=== PATIENT | female | born 1945 | race Caucasian/White ===

== ENCOUNTER → 2020-12-03 10:28 | Outpatient (CLI) | payer MEDICARE, SELFPAY ==
--- NOTE | ~2020-12-03 | DEXA_ITS ---
Bone Density Report Name: Kori Almazan Age: 75 Sex: Female Ethnicity: White Date of : 1945 Indication: postmenopausal; screening for osteoporosis; Referring Provider: Kate, Haim Loredo Study: Bone densitometry was performed. Exam Date: December 03, 2020 Accession number: [id number] Bone Density: Region BMD T-score Z-score Classification AP Spine (L1-L4) 1.237 1.7 4.1 Normal Femoral Neck (Left) 0.921 0.7 2.7 Normal Total Hip (Left) 1.069 1.0 2.8 Normal Femoral Neck (Right) 0.920 0.6 2.7 Normal Total Hip (Right) 1.099 1.3 3.0 Normal Total Hip Mean 1.084 1.2 2.9 Normal World Health Organization criteria for BMD impression classify patients as: Normal (T-score at or above -1.0), Osteopenia (T-score between -1.0 and -2.5), or Osteoporosis (T-score at or below -2.5). 10-year Fracture Risk: FRAX not reported because: All T-scores for Spine Total, Hip Total, Femoral Neck at or above -1.0 Clinical Information Provided by Patient: Patient maximum height was 63.0 Menopause Age: 51 No regular weight bearing exercise Does not regularly consume dairy products Drinks caffeinated beverages Onset of menses at age 10 Number of children 2 Impression: The patient has normal bone mass. Discussion: LOW RISK OF FRACTURE; BONE DENSITY IS WELL ABOVE THE MINIMUM DESIRABLE LEVEL AND ABOVE AVERAGE FOR AGE AND SEX AT ALL SKELETAL SITES TESTED. This person's bone density is above expected limits for age and sex. This is rarely clinically significant, but should be pursued if there are significant musculoskeletal complaints. The patient should follow a healthful lifestyle (good nutrition with adequate calcium and vitamin D, and appropriate weight-bearing exercise). Follow-Up: Consider repeating this study in 5 years or sooner if there is some new clinical indication. Reported by: GASTON on 12/03/2020 11:13:00 AM. Reviewed, dictated and finalized at location [facility]
== END ==
PROVIDERS: PCP Internal Medicine; Visit Provider Internal Medicine
DX: Z78.0 Asymptomatic menopausal state (principal)
CPT/HCPCS: 77080

== ENCOUNTER 2023-02-02 10:52 | Outpatient (CLI) | payer MEDICARE, SELFPAY ==
[2023-02-02 11:13] LABS: Hematocrit 43.1 % (37.0-47.0); Hemoglobin 14.5 g/dL (12.0-15.0)
[2023-02-02 11:22] LABS: Anion Gap 4 mmol/L (8-16); Blood Urea Nitrogen 13 mg/dL (7-17); Calcium 9.9 mg/dL (8.4-10.2); Carbon Dioxide 33 mmol/L (22-30); Chloride 100 mmol/L (98-107); Estimated Glomerular Filt Rate > 60; Glucose 120 mg/dL (65-110); Potassium 3.9 mmol/L (3.4-5.0); Sodium 137 mmol/L (137-145)
== END 2023-02-02 10:53 | disposition home or self-care (01) ==
LOC: ANHSURGERY 10:57
PROVIDERS: Anesthesiology; PCP Internal Medicine; Visit Provider Student in an Organized Health Care Education/Training Program
DX: R10.2 Pelvic and perineal pain (principal); Z79.899 Other long term (current) drug therapy
CPT/HCPCS: 36415; 80048; 85014; 85018

== ENCOUNTER 2023-02-09 00:16 | Day surgery (SDC) | payer MEDICARE, SELFPAY ==
[2023-02-01 17:21] VITALS: BMI 26.9
--- NOTE | 2023-02-01 17:29 | PC.NURSE ---
Report to the Outpatient Waiting Room, entrance under the green pavilion located off [facility], at time _1000_ on date _[id number]_. Planned Procedure Time: _1200_. Time changes happen often and if your time is changed the preop area will call you the afternoon before. - You and your visitor will be asked to self-screen and do not enter if you have any COVID symptoms. - A mask is optional within the hospital at this time. Patients may have clear liquids (water, carbonated beverages, clear teas, apple juice) until 3 hours prior to surgery with a maximum of 20 ounces. - No food from midnight until time of surgery Take the following medications with a SIP of water the morning of surgery: __Metoprolol, Paroxetine DO NOT STOP ANY OF YOUR OTHER PRESCRIPTION MEDICATIONS PRIOR TO SURGERY ?EXCEPT THE FOLLOWING Medications to discontinue per physician None Date to take last dose Please no make-up, nail [place], hairspray, perfume, deodorant, or body powder the day of surgery. No jewelry (including any body piercings) or valuables the day of surgery, leave them at home. Please take a shower or bath the night before, or the morning of, surgery with an antibacterial soap. Wear comfortable, loose fitting clothing. - Jewelry must be removed prior to entering the operating room. Rings and piercings that are not removed may be cut off. - The hospital will not accept responsibility for valuables. - Please leave all valuables, including medications, at home the day of surgery. If you are going home after surgery, a licensed cart driver must drive you home. - NO public transportation without another adult if you receive anesthesia. - We recommend that an adult stay with you for 24 hours following discharge. - We also recommend that you do not drive, make important decision, drink alcoholic beverages, or take any drugs that were not prescribed by your health care provider for at least 24 hours after your discharge time. Follow any additional instructions given to you from your surgeon. If you or anyone in your household have experienced Covid symptoms in the past week, please notify your surgeon or the nurse liaison at the phone number below for possible testing. Telephone instructions given to __Patient__and asked if any additional questions and then verbalized understanding. Patient advised to call surgeon office or pre surgery nurse liaison [phone] if any additional questions.
--- NOTE | 2023-02-08 14:51 | PM.IMHP ---
H&P: HPI History of Present Illness Date/Time: 02/08/23 14:51 Chief Complaint: pelvic pain thickened endometrium on ultrasound Narrative: 77-year-old female who presents for hysteroscopy D&C.? Patient states she continues to have some pelvic pain.? She denies any vaginal bleeding.? Ultrasound showed a thickened and irregular endometrial lining. Review of Systems Cardiovascular: Cardiovascular: Denies chest pain, Denies leg edema, Denies palpitations, Denies dyspnea and Denies dyspnea on exertion Respiratory: Respiratory: Denies cough, Denies dyspnea and Denies dyspnea on exertion Gastrointestinal: Gastrointestinal: Denies abdominal pain, Denies constipation, Denies diarrhea, Denies nausea and Denies vomiting Genitourinary: Genitourinary: Denies hematuria, Denies urinary frequency, Denies dysuria, Denies pelvic pain, Denies urinary incontinence and Denies vaginal discharge Neurologic: Reports system reviewed and no additional complaints, except as documented Psychiatric: Psychiatric: Reports no additional psychiatric complaints Endocrine: Endocrine: Denies palpitations PMFSH Past Medical History Medical History Diabetes Hyperlipidemia Surgical History Surgical History H/O heart bypass surgery History of delivery x 2 Hx of cholecystectomy Family History Family History Father Diabetes mellitus Heart disease Mother Diabetes mellitus Heart disease Social History Social History Smoking packs per day: 1 Smoking cigarettes per day: 20.0 Years smoked: 20 Smoking pack-years: 20.00 Smoking status: Former smoker Tobacco type: cigarettes Smoking end date: 02/02/80 Alcohol intake: current Drinks per week: 5 Alcohol use details: occasional Substance use: never Lack of Transportation: No Lack of Food: Never True Current Housing: I Have Housing Concerned About Future Housing: No Difficulty Paying Gas/Electric Bills: No Difficulty Paying for Meds: No Currently Unemployed: No Education: High School Diploma/GED Difficulty w/ Childcare or Family Care: No Living arrangements: with family Occupation/Education: retired Gender identity (if verbalized by the patient): Female Sexual Orientation (if Verbalized by the Patient): Straight or Heterosexual Spiritual care concerns: No Meds Home Medications and Allergies Home Medications Medication Instructions Recorded Confirmed Type aspirin 81 mg tablet,delayed 81 mg PO DAILY 01/03/23 02/01/23 History release (Adult Low Dose Aspirin) dulaglutide 1.5 mg/0.5 mL 1.5 mg subcut WEEKLY 01/03/23 02/01/23 History subcutaneous pen injector (Trulicity) famotidine 40 mg tablet 40 mg PO DAILY 01/03/23 02/01/23 History hydrochlorothiazide 25 mg tablet 25 mg PO DAILY 01/03/23 02/01/23 History metoprolol succinate 50 mg 50 mg PO DAILY 01/03/23 02/01/23 History tablet,extended release 24 hr paroxetine HCl 20 mg tablet 20 mg PO DAILY 01/03/23 02/01/23 History ramipril 10 mg capsule 10 mg PO DAILY 01/03/23 02/01/23 History simvastatin 40 mg tablet 40 mg PO HS 01/03/23 02/01/23 History Allergies Allergy/AdvReac Type Severity Reaction Status Date / Time No Known Allergies Allergy Unknown Verified 02/01/23 17:18 Exam Const: General: no acute distress Eyes: EOM: EOMs intact bilaterally Neck: Neck: supple Thyroid: thyroid normal Chest: Breast/axilla inspection: normal inspection of the breasts Breast/axilla palpation: normal palpation of the breasts, normal palpation of the axillae and no axillary lymphadenopathy Resp: Effort & Inspection: normal respiratory effort Auscultation: clear to auscultation bilaterally Cardio: Rate: regular rate Rhythm: regular rhythm GI: Inspection: non-
[2023-02-09] MEDS: ACETAMINOPHEN 500 MG TABLET 1000 MG PO (10:20)
[2023-02-09 10:24] VITALS: BP 158/74; PULSE 71; RESP 16; TEMP 36.1; O2SAT 100
[2023-02-09] MEDS: LACTATED RINGERS 1,000 ML 30 ML IV CONT ×2 (10:28→12:42)
[2023-02-09 11:08] LABS: Glucose Point of Care 132 mg/dl (65-105)
--- NOTE | 2023-02-09 11:20 | WPDHPUPDATE1 ---
History and Physical Update Update Date/Time: 02/09/23 11:20 History and Physical has been reviewed, including an updated exam of the patient. There are NO changes in the patient's condition. Risks, benefits, and alternatives have been discussed and questions answered. Patient agrees to proceed with procedure.
--- NOTE | 2023-02-09 11:35 | WPDANESEPPF ---
Anes - Initial Pre Proc Eval Procedure: Operation Date: 02/09/23 12:00 Proposed Procedures p Hysteroscopy Dilation and Curettage - Adrian Vernon MD Date/Time: 02/09/23 11:35 Surgeon: Adrian Vernon MD Pre Op Diagnosis: endometrial hyperplasia Patient Data Age: 77 Gender: F Height: 1.6 m Weight: 69.7 kg Last Vital Signs Temp 96.9 F L 02/09/23 10:24 Pulse 71 02/09/23 10:24 Resp 16 02/09/23 10:24 BP 158/74 H 02/09/23 10:24 Pulse Ox 100 02/09/23 10:24 O2 Del Method Room Air 02/09/23 10:24 Allergies Allergy/AdvReac Type Severity Reaction Status Date / Time codeine AdvReac Nausea Verified 02/09/23 10:29 Home Medications Medication Instructions Recorded Confirmed Type aspirin 81 mg tablet,delayed 81 mg PO DAILY 01/03/23 02/01/23 History release (Adult Low Dose Aspirin) dulaglutide 1.5 mg/0.5 mL 1.5 mg subcut WEEKLY 01/03/23 02/01/23 History subcutaneous pen injector (Trulicity) famotidine 40 mg tablet 40 mg PO DAILY 01/03/23 02/01/23 History hydrochlorothiazide 25 mg tablet 25 mg PO DAILY 01/03/23 02/01/23 History metoprolol succinate 50 mg 50 mg PO DAILY 01/03/23 02/01/23 History tablet,extended release 24 hr paroxetine HCl 20 mg tablet 20 mg PO DAILY 01/03/23 02/01/23 History ramipril 10 mg capsule 10 mg PO DAILY 01/03/23 02/01/23 History simvastatin 40 mg tablet 40 mg PO HS 01/03/23 02/01/23 History Laboratory Tests 02/09/23 11:03 POC Capillary Glucose 132 H mg/dl (65-105) Patient hx anesthesia problems: none Family hx anesthesia problems: none Results Review: All pre-operative results and documents have been reviewed as part of the pre-operative evaluation. [facility] Past Medical History Medical History Diabetes Hyperlipidemia Surgical History Surgical History H/O heart bypass surgery History of delivery x 2 Hx of cholecystectomy Family History Family History Father Diabetes mellitus Heart disease Mother Diabetes mellitus Heart disease Social History Social History Smoking packs per day: 1 Smoking cigarettes per day: 20.0 Years smoked: 20 Smoking pack-years: 20.00 Smoking status: Former smoker Tobacco type: cigarettes Smoking end date: 02/02/80 Alcohol intake: current Drinks per week: 5 Alcohol use details: occasional Substance use: never Lack of Transportation: No Lack of Food: Never True Current Housing: I Have Housing Concerned About Future Housing: No Difficulty Paying Gas/Electric Bills: No Difficulty Paying for Meds: No Currently Unemployed: No Education: High School Diploma/GED Difficulty w/ Childcare or Family Care: No Living arrangements: with family Occupation/Education: retired Gender identity (if verbalized by the patient): Female Sexual Orientation (if Verbalized by the Patient): Straight or Heterosexual Spiritual care concerns: No Anes - Eval Final PreProcedure Day of Procedure 02/09/23 11:35 Patient weight: normal Heart: regular rate and rhythm Lungs: clear to auscultation Airway: Mallampati scale class II Neurological: alert and oriented Last oral intake: >/= 8 hours ASA classification: III Emergent: no Anesthetic plan: proceed Anesthesia type and monitoring: general GIVS and standard monitoring Results Review: All pre-operative results and documents have been reviewed as part of the pre-operative evaluation. Informed Consent: The patient's anesthetic plan and its attendant risks and benefits were discussed with the patient/family/POA. Questions were solicited and answers provided to the satisfaction of the patient/family/POA.
[2023-02-09] MEDS: LIDOCAINE HCL 1% LOCAL INJ 20 ML VIAL 10 ML INFILTRATE (11:53)
--- NOTE | 2023-02-09 12:11 | W.PM.PROC2 ---
Procedure Note - Detailed Date of Procedure 02/09/23 Pre-op Diagnosis thickened endometrium Post-op Diagnosis Same Procedure Performed paracervical block hysteroscopy dilation & curettage Surgeon Adrian Vernon MD Anesthesia General Indications thickened endometrium Findings several pedunculated masses extending into the endometrial cavity from the endometrium. Hypervascular masses. Description of Procedure Kori Almazan presents for hysteroscopy D&C for the above indication. She was counseled as to the indications, risks, benefits, and alternatives to surgery, with the risks including bleeding, infection, damage to surrounding organs, VTE, and complications of anesthesia. Her verbal and written consent was obtained. PROCEDURE: The patient was taken to the OR and general anesthesia induced. She was prepped and draped in Everette stirrups with support of the back and bilateral lower extremities. I/O catheterization performed of the bladder. The above findings were noted. Infiltration with 1% lidocaine at the 3 and 9 o'clock cervical positions was performed. A single tooth tenaculum was placed on the anterior lip of the cervix. The cervix was dilated with sequential Sierra dilators. Hysteroscopy, using a normal saline medium, was performed and showed the above findings. The endometrial lining was visualized and the above findings were found. The Aveta operative resection blade was introduced through the hysteroscope. The device was then used to remove the endometrial mass. The mass was found to be quite dense and jammed the blade of the resector. Sharp currettage was performed to help remove as much tissue as possible. The resection blade was reintroduced to collect for tissue. The tissue was sent to pathology. The tenaculum was removed and hemostasis was observed. The patient tolerated the procedure well. Sponge, lap, and needle counts were correct. The patient had SCD's on throughout the case for VTE prophylaxis. The patient was taken to the recovery room in stable condition. Estimated Blood Loss 10 Drains No Packing No Pathology Yes (endometrial curettings ) Complications No immediate complications Condition Stable Disposition PACU [facility] Billing Surgery - Charge Forward: Surgery Billing
[2023-02-09 12:18] VITALS: BP 159/74; PULSE 95; RESP 15; O2SAT 93
[2023-02-09 12:45] VITALS: BP 152/61; PULSE 75; RESP 15; O2SAT 100
[2023-02-09 13:38] LABS: Glucose Point of Care 153 mg/dl (65-105)
== END 2023-02-09 13:10 | disposition home or self-care (01) ==
PROVIDERS: PCP Internal Medicine; Visit Provider Student in an Organized Health Care Education/Training Program
PROC: 0U5B8ZZ Destruction of Endometrium, Via Natural or Artificial Opening Endoscopic (ICD-10-PCS; CPT 58563; principal; 2023-02-09 12:00)
DX: R10.2 Pelvic and perineal pain (principal); R93.89 Abnormal findings on diagnostic imaging of other specified body structures; N85.8 Other specified noninflammatory disorders of uterus; E11.9 Type 2 diabetes mellitus without complications; E78.5 Hyperlipidemia, unspecified; Z87.891 Personal history of nicotine dependence
CPT/HCPCS: 58558; 82948; 88305; A9270; J2405; J2704; J3010; J7120